=== PATIENT | female | born 1970 | race Caucasian/White ===

== ENCOUNTER → 2022-05-22 12:37 | Outpatient (BNVA) | payer MEDICAID, SELFPAY | PROVIDERS: Family Provider Nurse Practitioner Family; PCP Nurse Practitioner Family; Referring Provider Family Medicine; Visit Provider Nurse Practitioner Family | DX: S46.012A Strain of muscle(s) and tendon(s) of the rotator cuff of left shoulder, initial encounter (principal); M75.102 Unspecified rotator cuff tear or rupture of left shoulder, not specified as traumatic; W19.XXXA Unspecified fall, initial encounter | CPT/HCPCS: 73030; 99214 ==

== ENCOUNTER 2022-06-06 06:50 | Day surgery (SDC) | payer MEDICAID, SELFPAY ==
[2022-06-06] VITALS (9 sets, daily range): BP systolic 91–110; BP diastolic 59–83; PULSE 64–75; RESP 15–21; TEMP 36.1; O2SAT 93–98; BMI 30.4
[2022-06-06] MEDS: acetaminophen 500 mg Tablet 1000 MG PO (07:29)
[2022-06-06] MEDS: sodium chloride 0.9% 1,000 ML 30 ML IV (07:30)
--- NOTE | 2022-06-06 07:47 | ANES.PREANE2 ---
Pre-Anesthetic Assessment Height/Weight: Height 1.65 m Weight 83.007 kg Temp Pulse Resp BP Pulse Ox O2 Del Method 97 F L 64 16 110/83 96 06/06/22 07:00 06/06/22 07:00 06/06/22 07:00 06/06/22 07:00 06/06/22 07:00 06/06/22 07:00 Preop Diagnosis: Left Rotator cuff tear Operation Date: 06/06/22 08:10 Proposed Procedures p arthroscopic left rotator cuff repair/ 24644,M75.102(Left) - Gold Aburto MD s Shoulder Arthroscopy(Left) - Gold Aburto MD Familial anesthetic complications: None Was Beta Marjorie taken within 24 hours: N/A Was Clonidine taken within 24 hours: N/A Last intake: Intake Last Liquid Date 06/05/22 Last Liquid Time 20:00 Last Solid Date 06/05/22 Last Solid Time 20:00 Social No alcohol and No tobacco Exam alert, oriented x 3, clear to auscultation bilaterally and regular rate & rhythm Airway Mallampati: Class II Dentition: full GI Gastroesophageal Reflux Disease Musc/skel Lower Back Pain Anesthetic Plan ASA status: 2 Anesthesia: General Risk of > 500 ml blood loss (7ml/kg in children): No Medications/Allergies Home Medications Medication Instructions Recorded Confirmed Last Taken Type esomeprazole magnesium 10 mg 10 mg PO DAILY 05/22/22 06/06/22 06/05/22 History granules delayed release for susp gabapentin 300 mg capsule 300 mg PO BID 05/22/22 06/06/22 06/05/22 History hydrocodone 10 mg-acetaminophen 1 tab PO BID PRN Pain 05/22/22 06/06/22 06/04/22 History 325 mg tablet Allergies Allergy/AdvReac Type Severity Reaction Status Date / Time No Known Allergies Allergy Unverified 05/22/22 13:08 Current Medications Generic Name Dose Route Start Last Admin Trade Name Freq PRN Reason Stop Dose Admin Sodium Chloride 1,000 mls @ 30 mls/hr 06/06/22 07:00 06/06/22 07:30 Sodium Chloride 0.9% IV 06/07/22 06:59 30 mls/hr .Q24H DAPHNE Administration Data Anesthesia Cardiac Studies: No Data to Display
--- NOTE | 2022-06-06 07:48 | ANES.PROC ---
Anesthesia Procedures Procedure/Date: 06/06/22 Nerve Block ^: Nerve Block 1: Main Anesthesia: general anesthesia Time Out Performed: Yes Consent: requested by attending/covering physician, from patient, risks and benefits reviewed and patient agrees to proceed Nerve block location: interscalene (R) Anesthesia monitors applied: pulse oximetry, EKG, BP cuff and oxygen Nerve block position: semi sitting Anesthetic Used: ropivicaine 0.5% (20) and with decadron (4 mg) Ultrasound used to: recognize landmarks, visualize and ID brachial plexus and visualize and ID interscalene groove Nerve Stimulator Used?: No Interscalene/Femoral BLK: 2 stimuplex 22 g needle used for position and inplane approach, visualize local anesthetic spread and no vascular puncture identified Injection: neg aspiration of heme Patient Tolerated Procedure: well Complications: none
--- NOTE | 2022-06-06 07:55 | W.PM.OPSUD ---
Surgery/Procedure H&P Update DATE OF PROCEDURE: June 06, 2022 DATE H&P PERFORMED: 05/22/22 H&P UPDATE INFORMATION: I have reviewed H&P completed within last 30 days PREOP DIAGNOSIS: Left Rotator cuff tear PLANNED PROCEDURE: Operation Date: 06/06/22 08:10 Proposed Procedures p arthroscopic left rotator cuff repair/ 42438,M75.102(Left) - Gold Aburto MD s Shoulder Arthroscopy(Left) - Gold Aburto MD
[2022-06-06] MEDS: ceFAZolin 2,000 MG in sodium chloride 0.9% (plus) 50 ML 100 MG IV (08:06)
[2022-06-06] MEDS: EPINEPHrine 1 mg/mL INJ XX (09:02)
--- NOTE | 2022-06-06 09:38 | PM.OP ---
Operative Report Date of procedure: June 06, 2022 Pre-op diagnosis: Preop Diagnosis Left Rotator cuff tear Post-op diagnosis: same Post-op diagnosis: Left bursal rotator cuff tear, impingement Procedure done: Arthroscopic repair left rotator cuff with bio inductive implant, subacromial decompression Implants: Bhat and Nephew Helicoil 4.5 mm anchor with tape, Bhat and Nephew Regeneten patch Pathology: none sent Surgeon: Gold Aburto Anesthesia: General and Nerve Block (Interscalene block) Estimated blood loss (mL): 10 Findings: The patient had a high-grade bursal tear in the critical area of the supraspinatus approximately a centimeter from anterior to posterior with no more than a centimeter of retraction. The tear involved perhaps at 80% of the bursal thickness of the cuff. She had a gentle anterior curvature to her acromion Condition: stable Disposition: PACU Brief History: The patient is a 60-year-old female with pain in her right shoulder and MRI suggesting high-grade bursal tearing. She failed a home exercise program and her pain was uncontrolled with medications. She was taken to the OR for rotator cuff repair to improve pain and function Procedure: The patient was taken the operating room after interscalene block was provided by anesthesia. She was given 2 g of Ancef and a general anesthesia. She is positioned in the lateral position. Her left shoulder was prepped and draped in the usual fashion. A timeout was performed. A posterior incision was made with a scalpel blade the scope cannula and trocar were driven into the glenohumeral joint. The scope cannula and trocar were directed into the joint. An anterior working portal was made with a scalpel blade. The glenohumeral joint was carefully inspected and found to be free of chondromalacia. Labral attachments were healthy. The biceps tendon was probed and in good condition. The bursal aspect of the rotator cuff was inspected and found to be free of tearing. The scope was then directed to the subacromial space. A lateral working portal was made with a scalpel blade. Utilizing the Bhat and Nephew Werewolf cautery bursal tissue was removed and the leading edge of the acromion with outlined. The bursal aspect of the rotator cuff was carefully inspected revealing a area of the degenerative tearing in the central supraspinatus insertion. Probe could be passed underneath the bursal tear clearly did not communicate with the glenohumeral joint. The edges were lightly debrided creating a tear approximately a centimeter from anterior to posterior with approximately a centimeter debridement before reasonable quality tenden was encountered. The footprint on the tuberosity was debrided with the incisor shaver. Through the lateral portal a 5.5 mm acromionizer was introduced. Approximately 4 mm of anterior and inferior acromion were removed planing the acromion to a flatter morphology and creating exposed trabecular bone for source of stromal cells for later healing. Next a small lateral skin incision was made with a scalpel blade. A 4.5 mm helical anchor was placed laterally over the debrided bursal footprint. A Bhat and NephUniSmart FirstPass suture passer was used to shuttle each limb of a tape through the bursal cuff approximately 8 mm from the edge. The sutures were secured to the lateral portal drawing the bursal cuff down over the debrided bone. Next a local lateral incision was made and the Bhat and Nephew Regeneten patch was passed over the repair and the bursal cuff. Through previous suture anchor portal a small cannula was introduced. Soft tissue arun were placed at the tube medial corners and over the mid central portion of the patch. To lateral bone arun were placed through the previous working lateral cannula portal. The repair was visualized and found to be intact and stable. Arthroscopic clip was removed. Portals were closed with 3-0 Prolene. Dressings were applied. He was placed in a sling. The patient was extubated taken to recovery room in stable condition.
[2022-06-06] MEDS: oxyCODONE 5 mg IR Tab/Cap PO (10:37)
--- NOTE | 2022-06-06 12:50 | ANE.PACU2 ---
Inpatient post-anesthesia follow up: Airway intact: Yes Vital signs: Temperature 97.0 F Pulse Rate 75 Respiratory Rate 16 Blood Pressure 100/59 Pulse Oximetry 94 Oxygen Delivery Me thod Room Air Oxygen Flow Rate 6 Fraction of Inspir ed Oxygen Hydration adequate: Yes Nausea and vomiting: No Pain level: 1 Mental status: Baseline
== END 2022-06-06 10:50 | disposition home or self-care (01) ==
PROVIDERS: PCP Family Medicine; Visit Provider Orthopaedic Surgery
PROC: (CPT 29826; principal; 2022-06-06 08:00)
PROC: (CPT 29805; 2022-06-06 08:00)
DX: S46.012A Strain of muscle(s) and tendon(s) of the rotator cuff of left shoulder, initial encounter (principal); X58.XXXA Exposure to other specified factors, initial encounter; K21.9 Gastro-esophageal reflux disease without esophagitis
CPT/HCPCS: 29826; 29827; C1713; J0171; J1100; J2405; J2704; J2795; J3010; J3490; J7030

== ENCOUNTER → 2022-06-11 08:24 | Outpatient (BNVA) | payer MEDICAID, SELFPAY | PROVIDERS: PCP Family Medicine; Visit Provider Nurse Practitioner Family | DX: Z98.890 Other specified postprocedural states (principal) | CPT/HCPCS: 99024 ==

== ENCOUNTER → 2022-07-09 13:51 | Outpatient (BNVA) | payer MEDICAID, SELFPAY | PROVIDERS: PCP Family Medicine; Visit Provider Nurse Practitioner Family | DX: M47.816 Spondylosis without myelopathy or radiculopathy, lumbar region (principal); M51.36 Other intervertebral disc degeneration, lumbar region | CPT/HCPCS: 99024; 99213 ==

== ENCOUNTER 2022-08-30 13:21 | Outpatient (CLI) | payer MEDICAID, SELFPAY ==
--- NOTE | 2022-08-30 13:27 | MM_ITS ---
WS: [id number] Bilateral screening 3D tomosynthesis digital mammogram, 08/30/2022 Clinical Data: SCREENING Comparison: 10/03/2009. Findings: The breast parenchymal pattern shows heterogeneous density. No spiculated masses or clustered calcifi cations are seen. There are no secondary signs of carcinoma. MM/[place] [id number] Impression: 1. Negative bilateral mammogram unchanged. 2. Recommend annual screening mammograms. BIRADS: 1-Negative FOLLOW UP: 1 Year Follow-up The CAD broadcast checker was used.
== END 2022-08-30 13:22 | disposition home or self-care (01) ==
LOC: RAD 13:21
PROVIDERS: PCP Family Medicine; Visit Provider Family Medicine
DX: Z12.31 Encounter for screening mammogram for malignant neoplasm of breast (principal)
CPT/HCPCS: 77063; 77067

== ENCOUNTER → 2023-02-25 14:03 | Outpatient (BNVA) | payer MEDICAID, SELFPAY | PROVIDERS: PCP Family Medicine; Visit Provider Physician Assistant | DX: M25.512 Pain in left shoulder (principal) | CPT/HCPCS: 72040; 73030 ==

== ENCOUNTER 2023-12-10 09:23 | Day surgery (SDC) | payer MEDICAID, SELFPAY ==
[2023-12-10] VITALS (11 sets, daily range): BP systolic 98–134; BP diastolic 61–76; PULSE 60–74; RESP 10–17; TEMP 36.1–37.1; O2SAT 93–100; BMI 31.4
--- NOTE | 2023-12-10 09:37 | W.PM.OPSUD ---
Surgery/Procedure H&P Update DATE OF PROCEDURE: December 10, 2023 DATE H&P PERFORMED: 11/11/23 H&P UPDATE INFORMATION: I have reviewed H&P completed within last 30 days, I have examined patient prior to procedure and No changes to prior documentation PREOP DIAGNOSIS: Left carpal tunnel syndrome, left cubital tunnel syndrome PRIMARY INDICATION FOR PROCEDURE: Left carpal tunnel syndrome, left cubital tunnel syndrome PLANNED PROCEDURE: Operation Date: 12/10/23 11:05 Proposed Procedures p Carpal Tunnel Release(Left) - Mak Delgado DO s Cubital Tunnel Release WITH POSSIBLE ULNAR NERVE TRANSPOSITION(Left) - Mak Delgado DO
[2023-12-10] MEDS: sodium chloride 0.9% 1,000 ML 30 ML IV (10:09)
[2023-12-10] MEDS: acetaminophen 1,000 MG/100 ML PIGGYBACK 400 MG IV (10:11)
[2023-12-10] MEDS: ketorolac 30 mg/mL INJ IVP (10:11)
--- NOTE | 2023-12-10 10:44 | P.ANESASSM_ITS ---
Pre-Anesthetic Assessment Height/Weight: Height 1.65 m Weight 85.729 kg Temp Pulse Resp BP Pulse Ox O2 Del Method 98 F 69 16 125/71 98 Room Air 12/10/23 09:44 12/10/23 09:44 12/10/23 09:44 12/10/23 09:44 12/10/23 09:44 12/10/23 09:44 Preop Diagnosis: Left carpal tunnel syndrome, left cubital tunnel syndrome Operation Date: 12/10/23 11:05 Proposed Procedures p Carpal Tunnel Release(Left) - Mak King William, DO s Cubital Tunnel Release WITH POSSIBLE ULNAR NERVE TRANSPOSITION(Left) - Mak Danny, DO Familial anesthetic complications: None Was Beta Marjorie taken within 24 hours: N/A Was Clonidine taken within 24 hours: N/A Last intake: Intake Last Liquid Date 12/09/23 Last Liquid Time 23:00 Last Solid Date 12/09/23 Last Solid Time 23:00 Social No alcohol and No tobacco Exam alert, oriented x 3, clear to auscultation bilaterally and regular rate & rhythm Airway Mallampati: Class II Dentition: other (no teeth) GI Gastroesophageal Reflux Disease Anesthetic Plan ASA status: 2 Anesthesia: MAC Risk of > 500 ml blood loss (7ml/kg in children): No Medications/Allergies Home Medications Medication Instructions Recorded Confirmed Last Taken Type gabapentin 300 mg capsule 300 mg PO BID 05/22/22 12/09/23 12/08/23 History ibuprofen 200 mg tablet 200 mg PO Q6H PRN Pain 07/11/22 12/09/23 12/02/23 Histor y naproxen sodium 220 mg tablet 220 mg PO Q12H PRN Pain 07/11/22 12/09/23 12/02/23 History (Aleve) cock up splint #1 ea 06/06/23 11/11/23 Unknown Rx hydrocodone 10 mg-acetaminophen 1 tab PO BID PRN Pain (Scale Score 06/06/23 12/09/23 12/06/23 History 325 mg tablet 4-6) omeprazole 20 mg tablet,delayed 20 mg PO DAILY 12/09/23 12/09/23 12/08/23 History release rimegepant 75 mg disintegrating 75 mg PO DAILY 12/09/23 12/10/23 Unknown History tablet (Nurtec ODT) tramadol 50 mg tablet 50 mg PO TID PRN Pain (Scale Score 12/09/23 12/09/23 12/08/23 History 1-3) Allergies Allergy/AdvReac Type Severity Reaction Status Date / Time adhesive tape Allergy Mild ALGY-Redness Verified 12/10/23 09:39 of Skin nylon AdvReac infection Verified 12/10/23 09:39 stitches Allergy Unknown Uncoded 12/10/23 09:39 Current Medications Generic Name Dose Route Start Last Admin Trade Name Freq PRN Reason Stop Dose Admin Sodium Chloride 1,000 mls @ 30 mls/hr 12/10/23 09:45 12/10/23 10:09 Sodium Chloride 0.9% IV 12/11/23 09:44 30 mls/hr .Q24H DAPHNE Administration PFSH Anesthesia Social History Smoking and tobacco/nicotine status: former use of tobacco/nicotine Second hand smoke exposure: No Alcohol intake: current Alcohol intake frequency: holidays/special occasions only Substance/Drug Use: never Adopted: No Caregiver/support person: Yes Lives independently: Yes Household members: spouse Housing: House Marital status: Number of children: 4 Number of grandchildren: 5 Highest education level completed: High School Graduate service: No Current occupational status: unemployed Current occupational exposures/hazards: No Pets and animals: Yes Sexually active: Yes Do you think of yourself as: Straight/Heterosexual Current gender identity: Female Special randy needs: No Agree to transfusion: Yes Data Anesthesia Cardiac Studies: No Data to Display
[2023-12-10] MEDS: ceFAZolin 2,000 MG in sodium chloride 0.9% (plus) 50 ML 100 MG IV (11:25)
[2023-12-10] MEDS: lidocaine-epi 1% 20 mL INJ 5 ML INJECTION (11:55)
[2023-12-10] MEDS: ROPivacaine 0.5% SDV 30 mL 25 MG INJECTION (11:55)
--- NOTE | 2023-12-10 12:25 | P.BOP_ITS ---
Date of Procedure: 12/10/2023 Surgeon: Mak Delgado DO Developmental Services Worker(s): DOM Valera Procedure(s) performed: Left carpal tunnel release Left cubital tunnel release (ulnar nerve decompression at the elbow) Left elbow lipoma excision Findings of the procedure(s): Patient was found to have a left elbow lipoma directly over top of the medial incision over the cubital tunnel this was subsequently excised and sent for pathology. This was right above the flexor pronator fascial plane. Lipoma was excised and sent for pathology, underwent left cubital tunnel release there is no subluxation of the ulnar nerve a right in situ release was performed as well as carpal tunnel release procedure as planned with no complications or issues Estimated blood loss: 5 mL Specimen(s) removed: None Post-operative diagnosis: Left carpal tunnel syndrome, left cubital tunnel syndrome, left elbow lipoma
--- NOTE | 2023-12-10 12:28 | P.OP_ITS ---
Operative Report Date of procedure: December 10, 2023 Surgeon: aMk Delgado DO Institutional Aide: Chuck Delgado PA-C: PA was necessary for assistance in this case with hand positioning to execute the procedure, retraction and protection of neurovascular structures as well as to assist with wound closure and dressing application. Procedure: Preoperative diagnosis: Left carpal tunnel syndrome, left cubital tunnel syndrome Postop Diagnosis: Same, left elbow lipoma Procedure done: Left carpal tunnel release Left?cubital tunnel tunnel release (ulnar nerve decompression at elbow) Surgeon: Mak Delgado DO Estimated blood loss: 5 mL Tourniquet? 21 minutes IV fluids: 600 mL Complications: None Findings: See operative report narrative Condition: stable Disposition: same day Brief History: Patient's been seen and worked up in the outpatient setting and findings consistent with preoperative diagnosis.? Patient has Left carpal tunnel syndrome as well as Left?cubital tunnel syndrome which has been worked up in the outpatient setting has physical exam findings consistent with this, patient had nerve study which showed normal findings however given failed conservative treatment as well as classic carpal and cubital nerve finding symptoms she elects proceed with surgical intervention..? Patient's failed conservative treatment.? As result through shared decision making agreed to proceed with? Left carpal tunnel and Left?cubital tunnel release possible ulnar nerve transposition . we talked about treatment options as far as nonoperative and operative intervention.? Understands risk benefits complication alternatives surgical nonsurgical treatment options.? Understanding his risks he agrees to proceed with surgical intervention. Understanding these risks he agrees to proceed with surgery.? Consent obtained in office. Procedure: Patient seen evaluate in the preoperative holding area.? Consent was reviewed and signed with patient.? Correct extremity marked.? Patient seen evaluated by anesthesia department once cleared for surgery was then taken back to the operative suite placed in supine position all bony prominences well-padded p atient properly secured to bed.? Left upper extremity placed onto armboard.? Nonsterile tourniquet applied Left upper arm.? Patient then underwent anesthesia per the anesthesia department.? Patient's Left upper extremity was then prepped and draped in standard orthopedic fashion.? Final timeout performed.? Patient received appropriate preoperative antibiotics. Esmarch was used exsanguinate the Left upper extremity.? Tourniquet was insufflated to 250 mmHg. Next marked out the landmarks of the Left elbow of the medial epicondyle and olecranon and made a curvilinear incision following the course of the ulnar nerve at the medial aspect of the elbow.? Sharp scalpel incision was made through skin and subcutaneous tissue.? Next I switched to Littler dissection scissors and spread in plane of the medial antebrachial cutaneous nerve branching which was protected throughout this part of the dissection.? Prior to identification the fascia patient was found to have a small fatty lipoma directly over top my incision and this was subsequently excised and sent for pathology. This measured roughly 2 cm x 1 cm x 1 cm. then I directly came down over the fascia and identified the 2 heads of the FCU fascia and split this Left in the middle and subsequently identified my ulnar nerve distally.? This was then completely released distally under direct visualization and loupe magnification.? Once the nerve was then identified I then subsequently tracked this proximally and released this through Miller's ligament as well as complete decompression of the nerve proximally all the way past the intermuscular septum.? The nerve was completely released and decompressed both proximally and distally.? Ulnar nerve neurolysis performed and completed both proximally and distally with dissection scissors.? I then took the elbow through range of motion and there was no instability or subluxating of the ulnar nerve.? This completed?cubital tunnel release.? Next I proceeded with the carpal tunnel release first.? I made a standard open carpal tunnel release starting with the distal most extent in the palm at the De La Garza's cardinal line and the incision line was made in line with the fourth ray and ended just distal to the wrist crease.? Sharp scalpel incision was made through skin and subcutaneous tissue I then utilizing self retainer then began to dissect with dissection scissors split longitudinally the palmar fascia.? Next I then utilizing my assistant chief train dispatcher Abena retractors subsequently utilizing scalpel feathered through the palmaris brevis as well as through the transverse carpal ligament distally.? Once I encountered the floor of the transverse carpal ligament and entered into the carpal tunnel I then switched to dissection scissors.? Carefully released the distal extent of the transverse carpal ligament to the palmar fat.? Care was to protect the recurrent branch and not injured this during this part of the case.? Next I then placed a Hegins underneath the transverse carpal ligament proximally to protect the nerve in the carpal tunnel contents.? And then I subsequently under loupe magnification utilize my dissection scissors to release the transverse carpal ligament into t he antebrachial fascia under direct visualization with care to keep my scissors with a curved ulnarly away from the palmar cutaneous branch.? The transverse carpal was then completely decompressed proximally and a Hegins was then placed both distally and proximally throughout the carpal tunnel and had complete decompression of the nerve.? The nerve did appear to have hourglass shape as it went through the carpal tunnel.? With significant irritation noted around the nerve.? No masses were noted within the contents of the carpal tunnel.? This completed the carpal tunnel release and then I subsequently irrigated the wound bed. ?Next the wound bed was thoroughly irrigated.? Tourniquet was deflated.? Hemostasis was satisfactory at the?cubital tunnel release surgery site. I then inspected the carpal tunnel incision and this was found to have satisfactory hemostasis and all this was maintained through bipolar electrocautery.? At this point time I sequentially closed?cubital tunnel site with 2-0 Monocryl suture deep as well as 4-0 Monocryl layer with the skin Dermabond and Steri-Strips. The carpal tunnel was subsequently irrigated hemostasis satisfactory bipolar electrocautery and this was closed once again with Monocryl suture Dermabond and Steri-Strips. Patient had reaction to the nylon suture and past surgeries and as result we proceeded with Monocryl. She is tolerated Dermabond as well. Dressing was Xeroform 4 x 4's ABD Curlex soft roll and an Chencho wrap has a bulky soft dressing. Patient was then awakened from anesthesia and taken to PACU in stable condition. Disposition: Patient taken to PACU in stable condition recovering well.? Patient will receive appropriate discharge instructions as well as pain medication postoperatively.? We will follow-up with me in the office in 2 weeks.? Patient understands agrees with current plan.? All questions answered.? Pt understands if any questions or concerns and contact the office for follow-up appointment..
--- NOTE | 2023-12-10 12:50 | PM.PACU ---
PACU note Narrative: Patient is a 52-year-old female just underwent a left carpal tunnel and left cubital tunnel release. Patient transferred to PACU in stable condition. Pain is well controlled. Dressing on hand is dry and in place. Patient's fingers are warm and well-perfused. Patient can wiggle fingers. normal cap refill under 2 seconds. Patient has normal elbow range of motion. Unable to assess sensation due to residual localized anesthetic. Exam: awake Disposition: discharged
[2023-12-10] MEDS: fentaNYL 50 mcg/mL INJ 2mL IVP (12:54)
[2023-12-10] MEDS: HYDROcodone-acetaminophen 10-325 mg Tablet 1 TAB PO (13:30)
--- NOTE | 2023-12-10 14:00 | ANE.PACU2 ---
Inpatient post-anesthesia follow up: Airway intact: Yes Vital signs: Temperature 97.8 F Pulse Rate 67 Respiratory Rate 16 Blood Pressure 134/67 Pulse Oximetry 98 Oxygen Delivery Me thod Room Air Oxygen Flow Rate 7 Fraction of Inspir ed Oxygen Hydration adequate: Yes Nausea and vomiting: No Pain level: 1 Mental status: Baseline
== END 2023-12-10 14:03 | disposition home or self-care (01) ==
PROVIDERS: PCP Family Medicine; Visit Provider Student in an Organized Health Care Education/Training Program
PROC: (CPT 64721; principal; 2023-12-10 11:05)
PROC: (CPT 64718; 2023-12-10 11:05)
PROC: (CPT 11402; 2023-12-10 11:05)
DX: D17.22 Benign lipomatous neoplasm of skin and subcutaneous tissue of left arm (principal); G56.02 Carpal tunnel syndrome, left upper limb; G56.22 Lesion of ulnar nerve, left upper limb; K21.9 Gastro-esophageal reflux disease without esophagitis; Z87.891 Personal history of nicotine dependence
CPT/HCPCS: 11402; 64718; 64721; 88304; J0131; J0690; J1100; J1885; J2250; J2405; J2704; J2795; J3010; J7030

== ENCOUNTER → 2023-12-18 11:46 | Outpatient (BNVA) | payer MEDICAID, SELFPAY | PROVIDERS: PCP Family Medicine; Visit Provider Internal Medicine Pulmonary Disease | DX: M25.641 Stiffness of right hand, not elsewhere classified (principal); M25.642 Stiffness of left hand, not elsewhere classified; R06.02 Shortness of breath | CPT/HCPCS: 36415; 71046; 82785; 85025; 85651; 86003; 86038; 86140; 86200; 86235; 86431 ==

== ENCOUNTER → 2024-01-08 15:12 | Outpatient (BNVA) | payer MEDICAID, SELFPAY | PROVIDERS: PCP Family Medicine; Visit Provider Physician Assistant | DX: M75.42 Impingement syndrome of left shoulder | CPT/HCPCS: 73030 ==

== ENCOUNTER 2024-01-13 09:05 | Outpatient (CLI) | payer MEDICAID, SELFPAY ==
[2024-01-13 09:24] VITALS: PULSE 60; RESP 18; O2SAT 98
[2024-01-13] MEDS: albuterol 2.5 mg/3 mL Neb INHALATION (09:24)
[2024-01-13 09:29] VITALS: PULSE 65
== END 2024-01-13 09:06 | disposition home or self-care (01) ==
LOC: RT 09:06
PROVIDERS: PCP Family Medicine; Visit Provider Internal Medicine Pulmonary Disease
DX: R06.02 Shortness of breath (principal)
CPT/HCPCS: 94060; 94726; 94729; J7613

== ENCOUNTER 2025-04-17 15:14 | Emergency (ER) | payer MEDICAID, SELFPAY ==
[2025-04-17 15:15] VITALS: BP 135/69; PULSE 68; RESP 16; TEMP 36.6; O2SAT 98; BMI 30.7
[2025-04-17] MEDS: ondansetron hcl ODT 4 mg Tab PO (16:07)
[2025-04-17] MEDS: HYDROcodone-acetaminophen 10-325 mg Tablet 1 TAB PO (16:07)
[2025-04-17 16:09] VITALS: BP 103/73; PULSE 72; RESP 16; O2SAT 98
--- NOTE | 2025-04-17 16:14 | ED_ITS ---
HPI - Skin/Abscess/Foreign Bdy General: Chief complaint: Skin/Abscess/Foreign Body Stated complaint: lump Lt inner thigh Time Seen by Provider: 04/17/25 15:30 Source: patient Mode of arrival: ambulatory Limitations: no limitations History of Present Illness: Patient is a 54-year-old female that presents to the emergency department with a tender, red, swollen area to the left inner thigh. She states she will get abscesses in this area from time to time. She states this started on Friday as a small bump but has gotten worse. She denies any fever or chills. She does report some nausea but denies any vomiting. She denies any abdominal pain. She states nothing has been making the symptoms better and she presents to the emergency department for further evaluation and treatment. The patient states she does have hydrocodone at home that she can use but has not been taking this as she usually uses this for back pain. She is not on any blood thinners. She states she is up-to-date on her tetanus immunization. Associated symptoms: Reports nausea; Deny chills, fever(s) or vomiting Related Data Home Medications ?Medication ?Instructions ?Recorded ?Confirmed gabapentin 300 mg capsule 300 mg PO BID 05/22/2204/17 omeprazole 20 mg tablet,delayed 20 mg PO DAILY 4 04/17/25 release rimegepant 75 mg disintegrating 75 mg PO DAILY PRN Richard gill 12/09/23 04/17/25 tablet (Nurtec ODT) Headache cetirizine 10 mg tablet 10 mg PO DAILY 04/17/2507/04 diclofenac sodium 25 mg 25 mg PO TID 04/17/25 tablet,delayed release hydrocodone 10 mg-acetaminophen 1 tab PO QID PRN Moder ate Pain 04/17/25 04/17/25 325 mg tablet (Scale Score 5-6) methocarbamol 500 mg tablet 500 mg PO QID PRN Spasms 0 04/17/25 04/17/25 naloxone 4 mg/actuation nasal See Rx Instructions .Rou te .COMPLEX 04/17/25 04/17/25 spray (Narcan) Previous Rx's ?Medication ?Instructions ?Recorded cock up splint #1 ea 06/06/23 albuterol sulfate 90 mcg/actuation 2 puff inhalation Q 6H PRN 12/23/23 aerosol inhaler shortness of breath or wheez ing #8.5 grams budesonide-formoterol HFA 80 2 puff inhalation BID #10 .2 grams 12/23/23 mcg-4.5 mcg/actuation aerosol inhaler (Symbicort) doxycycline hyclate 100 mg capsule 100 mg PO BID 10 da ys #20 caps 04/17/25 Allergies Allergy/AdvReac Type Severity Reaction Status Date / Time adhesive tape Allergy Mild ALGY-Redness Verified 01/08/24 15:25 of Skin nylon AdvReac infection Verified 01/08/24 15:25 Review of Systems General: Reports: 10 or more systems reviewed and unremarkable except in HPI and below Const: Denies: fever(s) or chills Eyes: Reports: change in vision ENMT: Denies: throat pain or ear or mastoid pain Card: Denies: chest pain or palpitations Resp: Denies: dyspnea, productive cough, non-productive cough or wheezing GI: Reports: nausea; Denies: abdominal pain or vomiting : Denies: flank pain Musc: Denies: neck pain or back pain Skin/Breast: Reports: changes in skin color (Redness in the left groin/proximal thigh) and other (Tender, swollen area proximal left thigh) Neuro: Denies: headache(s), numbness in extremities or weakness in extremities Psych: Reports: anxiety (Chronic) Jordan/Lymph: Denies: petechiae All/Imm: Denies: tongue swelling PFSH ED PFSH: Medical History (Updated 04/17/25 @ 17:02 by DOM Steinberg) Tonsillectomy planned Surgical History (Updated 04/17/25 @ 17:02 by DOM Steinberg) Hx of rotator cuff surgery Hx of cholecystectomy Hx of hysterectomy Hx of tonsillectomy Social History Smoking and tobacco/nicotine status: current every day tobacco/nicotine user Quit status (tobacco/nicotine): has quit using Year quit tobacco: 2020 Former quit date comment: 1 ppd X 5 years Second hand smoke exposure: No Alcohol intake: current Alcohol intake frequency: holidays/special occasions only Substance/Drug Use: never Adopted: No Caregiver/support person: Yes Lives independently: Yes Household members: spouse Housing: House Marital status: Number of children: 4 Number of grandchildren: 5 Highest education level completed: High School Graduate service: No Current occupational status: unemployed Current occupational exposures/hazards: No Pets and animals: Yes Sexually active: Yes Do you think of yourself as: Straight/Heterosexual Current gender identity: Female Special randy needs: No Agree to transfusion: Yes Physical Exam Const: COMMON NORMALS: no acute distress and patient oriented x3 GENERAL APPEARANCE: cooperative ORIENTATION/CONSCIOUSNESS: Yes awake HENMT: COMMON NORMALS: normocephalic, atraumatic, external ears normal, EAC's normal, TM's normal bilaterally and Normal external nose present HEAD & SCALP: normocephalic and atraumatic NOSE: Normal external nose present EXTERNAL EAR: Yes external ears normal EXTERNAL AUDITORY CANAL: EAC's normal TYMPANIC MEMBRANE: TM's normal bilaterally MOUTH: Normal oral and palatal m ucosa present and lip normal Eye: COMMON NORMALS: conjunctivae normal CONJUNCTIVA: Yes conjunctivae normal Resp: COMMON NORMALS: normal respiratory effort, No retractions and clear to auscultation bilaterally EFFORT & INSPECTION: Yes able to speak in complete sentences AUSCULTATION: clear to auscultation bilaterally, no crackles, no rales, no rhonchi and no wheezes Cardio: COMMON NORMALS: regular rate and regular rhythm RATE: regular rate RHYTHM: regular rhythm GI: COMMON NORMALS: Normal to inspection, nondistended, normoactive bowel sounds present, Soft to palpation and non-tender PALPATION: Yes Soft to palpation Extremity: COMMON NORMALS: no calf tenderness and no pedal edema NARRATIVE EXTREMITY EXAM: Patient does have a tender, swollen area on the left proximal, medial thigh/buttock that does have central fluctuance. There is some mild erythema. No drainage at this time. Neuro: COMMON NORMALS: patient oriented x3 Psych: ATTITUDE: Yes calm Skin: NARRATIVE SKIN EXAM: There is a tender, swollen area on the proximal, medial thigh/buttock with central fluctuance that is concerning for possible cutaneous abscess. Procedures Abscess I/D Site: lower extremity (Left proximal inner thigh) Side (if applicable): left Local Anesthetic: lidocaine 1% and with epi Amount of anesthesia used (mL): 6 Technique: incised with #11 blade Amount of fluid expressed (mL): 3 Irrigation: Yes Packing used?: plain Course Vital Signs: Vital signs: Vital Signs Temperature 97.9 F 04/17/25 15:15 Pulse Rate 70 04/17/25 16:52 Respiratory Rate 16 04/17/25 16:09 Blood Pressure 103/73 04/17/25 16:09 Pulse Oximetry 97 04/17/25 16:52 Oxygen Delivery Me thod Room Air 04/17/25 16:52 MDM - Skin/Abscess/Foreign Bdy Medicial Decision Making The patient tolerated the procedure well with no immediate complications. A sample of the pus was sent to the lab for Gram stain and culture. The patient will be started on doxycycline while we are awaiting the culture results. The patient states she does have hydrocodone at home that she can use. I recommended she use this as directed but not to take any additional Tylenol with it. Patient was prescribed doxycycline which was sent to the [facility] pharmacy here in [facility]. I recommended she use the medications as directed and follow-up with her primary care provider in 1 week for recheck. I also advised that she return to the emergency department with any worsening symptoms. The patient expressed understanding. Differential Diagnosis Likely abscess of skin or subcutaneous tissue and cellulitis No radiology studies performed this visit Critical Care Time Critical Care Time: Critical Care Time: No Discharge Plan Discharge Patient Disposition: Home Clinical Impression: Cutaneous abscess of groin Condition: Stable Prescriptions: New doxycycline hyclate 100 mg capsule 100 mg PO BID 10 Days Qty: 20 0RF No Action gabapentin 300 mg capsule 300 mg PO BID (DME) cock up splint See Rx Instructions .Route .MEDSUPPLY Qty: 1 0RF Rx Instructions: As directed albuterol sulfate 90 mcg/actuation HFA aerosol inhaler 2 puff inhalation Q6H PRN (Reason: shortness of breath or wheezing) Qty: 8.5 6RF budesonide-formoterol [Symbicort] 80-4.5 mcg/actuation HFA aerosol inhaler 2 puff inhalation BID Qty: 10.2 6RF methocarbamol 500 mg tablet 500 mg PO QID PRN (Reason: Spasms) cetirizine 10 mg tablet 10 mg PO DAILY hydrocodone-acetaminophen 10-325 mg tablet 1 tab PO QID PRN (Reason: Moderate Pain (Scale Score 5-6)) diclofenac sodium 25 mg tablet,delayed release (DR/EC) 25 mg PO TID naloxone [Narcan] 4 mg/actuation spray,non-aerosol See Rx Instructions .ROUTE .COMPLEX Rx Instructions: CALL 911. USE ONE FULL SPRAY IN ONE NOSTRIL ONE TIME. REPEAT EVERY 2-3 MINUTES NEEDED IF NO OR MINIMAL RESPONSE. omeprazole 20 mg Tablet,Delayed Release (Dr/Ec) 20 mg PO DAILY Nurtec ODT 75 mg tablet,disintegrating 75 mg PO DAILY PRN (Reason: Migraine Headache) Discharge Orders: Discharge ED (Routine); Ordered 04/17/25 Ordered By: Remigio Harrington Referrals: Caridad Jaeger DO [Primary Care Provider, [facility]] Discharge Diet: Usual diet Discharge Activity: Increase activity as tolerated Patient Instructions: Abscess Incision and Drainage (DC), Opioid Safety, Pain Management Activity Restrictions/Additional Instructions: Take medications as directed. Your prescriptions were sent electronically to the [facility] pharmacy in [place]. You may continue to use your current hydrocodone as directed for pain. Keep the packing in for 1 to 2 days and then remove the packing. Warm compresses to the area 15 minutes at a time, 4-5 times throughout the day to help with infection. Follow-up with your doctor for recheck in the next week. Do not submerge the wound in water such as swimming, hot tubs, bathtubs etc. You may wash it once a day in warm running water (like the shower) and then use a sterile dressing. Return immediately to the emergency department with any worsening symptoms such as increased pain, fever, vomiting or any other worsening symptoms. Print Language: Khmer Coding Level of Care Code ED Bleach Tester for Kayy Lester
[2025-04-17 16:52] VITALS: PULSE 70; O2SAT 97
[2025-04-17] MEDS: doxycycline 100 mg Tablet PO (16:52)
== END 2025-04-17 17:11 | disposition home or self-care (01) ==
PROVIDERS: Emergency Provider Physician Assistant; PCP Family Medicine
DX: L02.214 Cutaneous abscess of groin (principal); Z87.891 Personal history of nicotine dependence
CPT/HCPCS: 10060; 12345; 87070; 99283; J9999; Q0162

== ENCOUNTER → 2025-04-19 13:54 | Outpatient (BNVA) | payer MEDICAID, SELFPAY | PROVIDERS: PCP Family Medicine; Visit Provider Podiatrist Foot & Ankle Surgery | DX: M79.671 Pain in right foot (principal); M79.672 Pain in left foot; M72.2 Plantar fascial fibromatosis | CPT/HCPCS: 73630 ==